=== PATIENT | male | born 1965 | race Caucasian/White ===

== ENCOUNTER 2019-09-22 21:35 | Emergency (ER) | payer MEDICAID ==
[~2019-09-22] VITALS: Ht 175.3 cm; Wt 100.0 kg
[2019-09-22 21:52] VITALS: BP 168/84
[2019-09-22] MEDS ORDERED: VISCOUS LIDOCAINE 2% 15 ML UDC PO STA (22:36)
[2019-09-22] MEDS ORDERED: MAGNESIUM/ALUMINUM HYDROXIDE/SIMETHICONE 30ML UDC PO STA (22:36)
[2019-09-22] MEDS ORDERED: ONDANSETRON 4MG ODT PO STA (22:36)
[2019-09-22 22:55] LABS: BASOPHILS % 0.9 % (0.0-2.0); EOSINOPHILS % 1.1 % (0.0-5.0); HEMATOCRIT. 46.4 % (42.0-52.0); LYMPHOCYTES % 23.8 % (20.0-50.0); MEAN PLATELET VOLUME 7.4 fl (7.4-10.4); MONOCYTES % 6.2 % (2.0-8.0); PLATELET 286 x1000/uL (130-400); RED BLOOD CELL COUNT 5.15 mill/uL (4.7-6.1); RED CELL DISTRIBUTION WIDTH 14.2 % (11.6-14.6)
[2019-09-22 22:59] LABS: CHLORIDE 104 mEq/L (98-107)
[2019-09-22 23:01] LABS: INR 0.9; PROTHROMBIN TIME 9.4 sec (9.6-11.0)
[2019-09-22 23:03] LABS: ETHANOL BLOOD 168 mg/dL
== END 2019-09-22 23:26 | disposition left against medical advice (07) ==
LOC: ER 21:53
DX: R10.84 Generalized abdominal pain (principal); G89.29 Other chronic pain; R11.10 Vomiting, unspecified; R19.7 Diarrhea, unspecified; R10.13 Epigastric pain; R07.9 Chest pain, unspecified; F10.20 Alcohol dependence, uncomplicated; J45.909 Unspecified asthma, uncomplicated; E11.9 Type 2 diabetes mellitus without complications; K86.1 Other chronic pancreatitis; I10 Essential (primary) hypertension; Z90.49 Acquired absence of other specified parts of digestive tract; Z90.89 Acquired absence of other organs; Z86.19 Personal history of other infectious and parasitic diseases; Z98.890 Other specified postprocedural states; Z59.0 Homelessness; Z87.19 Personal history of other diseases of the digestive system; Z88.6 Allergy status to analgesic agent; Z88.8 Allergy status to other drugs, medicaments and biological substances; Y90.6 Blood alcohol level of 120-199 mg/100 ml
CPT/HCPCS: 36415; 80053; 80320; 83605; 83690; 84484; 85025; 85610; 99284; Q0162; G0480